=== PATIENT | female | born 1960 | race Caucasian/White ===

== ENCOUNTER → 2025-02-18 13:13 | Outpatient (BNVA) | payer OTHER, SELFPAY | PROVIDERS: Family Provider Nurse Practitioner Family; Visit Provider Internal Medicine | DX: I11.0 Hypertensive heart disease with heart failure (principal); I50.9 Heart failure, unspecified; I42.9 Cardiomyopathy, unspecified; E78.5 Hyperlipidemia, unspecified; Z95.810 Presence of automatic (implantable) cardiac defibrillator; Z87.891 Personal history of nicotine dependence; R07.9 Chest pain, unspecified; R06.02 Shortness of breath | CPT/HCPCS: 93005; 99204 ==

== ENCOUNTER 2025-03-25 11:06 | Outpatient (CLI) | payer OTHER, SELFPAY ==
--- NOTE | 2025-03-25 11:15 | USCV_ITS ---
Triplett Layla Age: 64 Gender: F : 1960 Exam Date: 03/25/2025 11:59 Ordering Phys: Bi Ramesh M.D ([email or web address]) Technologist: Exam Location: [facility] [place] Indication: cp sob hx of cva BP: 139 / 74 HR: 53 Rhythm: Sinus Technical Quality: Adequate MEASUREMENTS (Male / Female) Normal Values 2D ECHO LV Diastolic Diameter PLAX 4.2 cm 4.2 - 5.9 / 3.9 - 5.3 cm IVS Diastolic Thickness 1.3 cm 0.6 - 1.0 / 0.6 - 0.9 cm IVS Systolic Thickness 1.8 cm LVPW Diastolic Thickness 1.3 cm 0.6 - 1.0 / 0.6 - 0.9 cm LVPW Systolic Thickness 1.8 cm LVOT Diameter 2.0 cm LV Ejection Fraction 2D Teich 34.3 % LV Ejection Fraction MOD 4C 58.4 % LV Ejection Fraction MOD 2C 51.5 % LV Ejection Fraction 2C AL 53.5 % LA Diameter 3.2 cm RA Systolic Volume 4C AL 32.1 ml RA Systolic Volume 4C MOD 30.2 ml LA Sys Volume AL 32.9 cm cubed LA Sys Volume Index AL 18.4 cm cubed/m squared Aorta at Sinotubular Diameter 2.4 cm IVC Diameter 1.4 cm M-MODE LA Ao Ratio MM 1.0 AV Cusp Separation MM 1.9 cm DOPPLER AV Peak Velocity 159.0 cm/s LVOT Peak Velocity 63.0 cm/s AV Area Cont Eq vti 1.4 cm squared AV Area Cont Eq pk 1.3 cm squared MV Peak Velocity 83.0 cm/s MV Area PHT 3.2 cm squared Mitral E to A Ratio 0.9 TV Peak Velocity 235.0 cm/s TR Peak Velocity 239.0 cm/s TR Peak Gradient 22.8 mmHg TV Peak E Velocity 65.0 cm/s PV Peak Velocity 95.0 cm/s FINDINGS Left Ventricle Normal left ventricular size, systolic function and wall thickness, with no regional wall motion abnormalities. Left ventricular ejection fraction is estimated at 55 %. Grade II/IV diastolic dysfunction, moderately elevated filling pressures. Right Ventricle Catheter/pacemaker wire visualized in the right ventricle. Right Atrium Catheter/pacemaker wire in the right atrial cavity. Left Atrium The left atrium is normal in size. Mitral Valve Mild mitral valve regurgitation. Aortic Valve Mild aortic valve calcification. No aortic valve stenosis. Trace aortic valve regurgitation. Tricuspid Valve Structurally normal tricuspid valve without significant stenosis or regurgitation. Pulmonary artery systolic pressure is normal. Pulmonic Valve Mild pulmonary valve regurgitation. Pericardium Normal pericardium without effusion. Aorta Normal ascending aorta dimension. IVC The inferior vena cava appears normal. CONCLUSIONS Normal left ventricular size, systolic function and wall thickness, with no regional wall motion abnormalities. Left ventricular ejection fraction is estimated at 55 %. Grade II/IV diastolic dysfunction, moderately elevated filling pressures. Mild mitral valve regurgitation. There is no pericardial effusion. Right atrial pressure is around 5 mm of mercury. Antony Casas MD (Electronically Signed) Final Date: 31 March 2025 21:30 S
== END 2025-03-25 11:07 | disposition home or self-care (01) ==
LOC: RAD 11:08
PROVIDERS: PCP Nurse Practitioner Family; Visit Provider Internal Medicine
DX: R06.02 Shortness of breath (principal); R93.1 Abnormal findings on diagnostic imaging of heart and coronary circulation; Z96.89 Presence of other specified functional implants; I34.0 Nonrheumatic mitral (valve) insufficiency; I35.8 Other nonrheumatic aortic valve disorders; I37.1 Nonrheumatic pulmonary valve insufficiency
CPT/HCPCS: 93306

== ENCOUNTER 2025-06-21 13:23 | Outpatient (CLI) | payer OTHER, SELFPAY ==
--- NOTE | 2025-06-21 13:30 | USCV_ITS ---
Layla Triplett Age: 64 Gender: F : 1960 Exam Date: 06/21/2025 14:18 Ordering Phys: Chiqui Tam WATER LEAK REPAIRER WATER LEAK REPAIRER Technologist: JORJE [place] [facility] [place]: NSTEMI, CHF BP: 120 / 60 HR: 76 Rhythm: Sinus Technical Quality: Adequate MEASUREMENTS (Male / Female) Normal Values 2D ECHO LV Diastolic Diameter PLAX 4.4 cm 4.2 - 5.9 / 3.9 - 5.3 cm IVS Diastolic Thickness 0.9 cm 0.6 - 1.0 / 0.6 - 0.9 cm IVS Systolic Thickness 1.0 cm LVPW Diastolic Thickness 0.8 cm 0.6 - 1.0 / 0.6 - 0.9 cm LVPW Systolic Thickness 1.1 cm LVOT Diameter 2.0 cm LV Ejection Fraction 2D Teich 10.7 % LV Ejection Fraction MOD 4C 46.1 % LV Ejection Fraction MOD 2C 44.8 % LV Ejection Fraction 2C AL 51.8 % LA Diameter 2.9 cm RA Systolic Volume 4C AL 22.0 ml RA Systolic Volume 4C MOD 21.7 ml LA Sys Volume AL 27.4 cm cubed LA Sys Volume Index AL 14.9 cm cubed/m squared Aorta at Sinotubular Diameter 2.3 cm IVC Diameter 1.1 cm M-MODE LA Ao Ratio MM 1.2 AV Cusp Separation MM 1.2 cm DOPPLER AV Peak Velocity 122.0 cm/s LVOT Peak Velocity 80.0 cm/s AV Area Cont Eq vti 1.8 cm squared AV Area Cont Eq pk 2.0 cm squared MV Peak Velocity 69.0 cm/s MV Area PHT 4.2 cm squared Mitral E to A Ratio 0.9 TV Peak Velocity 176.5 cm/s TR Peak Velocity 211.0 cm/s TR Peak Gradient 17.8 mmHg TV Peak E Velocity 73.0 cm/s PV Peak Velocity 95.0 cm/s FINDINGS Left Ventricle Normal LV size with a slightly diminished ejection fraction of around 45 to 50%.abnormal septal motion consistent with conduction abnormality. Mild diffuse hypokinesia of the inferior wall segment Right Ventricle Normal right ventricular size and systolic function. Right Atrium Pacemaker/defibrillator wire on the right atrium pacemaker/defibrillator wire in the right ventricle Left Atrium Mildly increased left atrial size. IA Septum The interatrial septum appears to be intact Mitral Valve No gross abnormalities noted Aortic Valve Thickened aortic valve. Tricuspid Valve No gross abnormalities noted Pulmonic Valve Pulmonic valve not well visualized. Pericardium No pericardial effusion. Aorta Normal aortic annulus size. IVC Normal inferior vena cava. CONCLUSIONS Normal LV size with a slightly diminished ejection fraction of around 45 to 50%.abnormal septal motion consistent with conduction abnormality. Mild diffuse hypokinesia of the inferior wall segment. Pacemaker/defibrillator wire on the right atrium pacemaker/defibrillator wire in the right ventricle. Mildly increased left atrial size. Thickened aortic valve. There is no pericardial effusion. There are no intracardiac masses. Compared to the study from 03/25/2025, there is a slight drop in the LV ejection fraction Dr Shyann Villavicencio MD FAC (Electronically Signed) Final Date: 21 June 2025 22:18 S
== END 2025-06-21 13:24 | disposition home or self-care (01) ==
LOC: RAD 13:23
PROVIDERS: PCP Nurse Practitioner Family; Visit Provider Nurse Practitioner Family
DX: R07.9 Chest pain, unspecified (principal); R06.02 Shortness of breath; I45.89 Other specified conduction disorders; I51.89 Other ill-defined heart diseases; Z95.810 Presence of automatic (implantable) cardiac defibrillator; I35.8 Other nonrheumatic aortic valve disorders
CPT/HCPCS: 93306

== ENCOUNTER 2025-07-23 10:13 | Observation (INO) | payer OTHER, SELFPAY ==
[2025-07-23] VITALS (105 sets, daily range): BP systolic 75–115; BP diastolic 47–80; PULSE 84–121; RESP 15–38; TEMP 36.5; O2SAT 91–100
--- OUTSIDE RECORDS SUMMARY | 2025-07-23 10:29 | XMS_ITS | Clinical Summary ---
Author Organization [facility] iew Address [address] [place] [address] Phone Care Team Providers Care Orthotic Assistant Name Role Phone Unavailable Primary Care Provider Unavailabl e Encounters Date Type Department Care Team Description 06/22/2025 External Device Data [facility] ABSTRACTION Provider, Abstract 06/02/2025 External Device Data [facility]STRACTION Provider, Abstract 05/26/2025 External Device Data [facility]STRACTION Provider, Abstract 05/25/2025 External Device Data [facility] ABSTRACTION Provider, Abstract 04/24/2025 12:05 AM CDT - 04/24/2025 11:59 PM CDT Hospital Encounter [facility] [address] [place] [address] [facility] Discharge Disposition: [facility] hospital for [facility] complex [facility] hospital from Last 3 Months Social History Tobacco Use Types Packs/Day Years Used Date Smoking Tobacco: Never Assessed Comments Unknown Sex and Gender Information Value Date Recorded Sex Assigned at Not on file Legal Sex Female 3:46 PM CDT Gender Identity Not on file Sexual Orientation Not on file Plan of Treatment Health Maintenance Due Date Last Done Comments BREAST CANCER SCREENING 1999 COLORECTAL SCREENING 2004 Colorectal Cancer Screening 2004 FIT-DNA Q 3 years 2004 FIT/FOBT Q 1 year 2004 Flex Sig/CT Colonography Q 5 years 2004 RSV VACCINE (60+ or ) (1 - Risk 50-74 years 1-dose series) 2009 ZOSTER VACCINE (1 of 2) 2009 PNEUMOCOCCAL VACCINE 50+ YEA RS (2 of 2 - PCV) 04/14/2017 04/14/2016, 08/22/2010 OSTEOPOROSIS SCREENING 2024 INFLUENZA VACCINE (#1) 2025 9, 05/11/2016, 09/07/2015 DTAP/TDAP/TD VACCINES (3 - T d or Tdap) 01/26/2026 01/27/2016, 08/05/2011 Insurance MEDICARE PART A AND B [facility]
--- NOTE | 2025-07-23 10:36 | XR_ITS ---
WS: [id number] Portable AP upright chest, 07/23/2025 Clinical Data: AMS Comparison: Portable chest, 11/05/2014 Findings: No nodules, masses or effusions are seen. The heart is normal. The pulmonary vascularity is not increased. No pneumonia or pneumothorax is seen. The aortic arch and descending thoracic aorta are minimally tortuous. There is a 2-lead cardiac pacemaker with the generator overlying the right chest unchanged. There are surgical clips in the left axilla. 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 There is a levoscoliosis of the lumbar spine. XR/XR chest 1V portable [id number] Impression: Cardiac pacemaker and atherosclerosis.
--- NOTE | 2025-07-23 10:36 | CT_ITS ---
WS: [id number] CT scan of the head, 07/23/2025 Clinical Data: AMS Comparison: CT head 06/09/2014 DLP: 1897.[address] scans at [facility] use at least one of these dose optimization techniques: automated exposure control; mA and/or kV adjustment per patient size (includes targeted exams where dose is matched to clinical indication); or iterative reconstruction. Findings: The ventricular system is enlarged without shift. There is encephalomalacia of the left frontal parietal lobe with compensatory dilatation of the left lateral ventricle. No recent infarct or hemorrhage is seen. There are no abnormal intracerebral masses. The cerebellum and brainstem are not remarkable. Bony windows of the skull and skull base show no fractures or erosions. The mastoid air cells, internal auditory canals, sella turcica and intraorbital contents are unremarkable. There is a small lateral polyp or cyst in the right maxillary sinus. CT/CT head wo con* [id number] Impression: 1. Encephalomalacia of the left frontal parietal lobe with compensatory dilatat ion of the left lateral ventricle probably secondary to an old infarct. 2. Moderate cerebral atrophy.
--- NOTE | 2025-07-23 10:44 | W.ED.AMS ---
Documented by User: FREDERICK Mckee 07/23/25 17:41 HPI - Altered Mental Status General: Chief Complaint: Altered Mental Status Stated Complaint: AMS Time Seen by Provider: 07/23/25 10:24 Source: patient Mode of arrival: EMS Limitations: other (chronic aphasia from previous CVA) History of Present Illness: Patient is a 65-year-old female with history of cardiomyopathy, CVA with significant residual deficits including severe aphasia, hyperlipidemia, hypertension here via EMS for an episode of AMS. No history can be obtained from the patient as she is essentially nonverbal at baseline from her previous CVA. She seems to understand questioning and can sometimes mumble a yes/no . We were able to contact the daughter who is currently and route to the hospital who states this morning the patient had a episode where her eyes rolled back and she had kind of like foam coming from the side of her mouth and she seemed out of it . No seizure-like movements. Daughter states she seemed slow to come around but did return to baseline. Daughter states 2 days ago she had a procedure performed at [facility] where they removed old ureter stents and replaced them with new ones She states patient has not been running fevers. She has not seemed to have any shortness of breath. Blood pressure is soft upon arrival but daughter states this is normal for her. MD complaint: decreased responsiveness (short episode) Onset (ago): hour(s) Timing confirmed by: family member Severity: mild Context: other (pt does use marijuana and pain meds since her surgery) Associated symptoms: Reports no associated symptoms Related Data Home Medications ?Medication ?Instructions ?Recorded ?Confirmed albuterol sulfate 90 mcg/actuation 2 puff inhalation Q6H PRN 02/18/25 07/23/25 aerosol inhaler (Ventolin HFA) Shortness Of Breath atorvastatin 80 mg tablet (Lipitor) 80 mg PO QPM 02/18/25 07/23/25 cyanocobalamin (vitamin B-12) 1,000 mcg PO DAILY 02/18/25 07/23/25 1,000 mcg capsule spironolactone 25 mg tablet 25 mg PO DAILY 02/18/25 07/23/25 Held on 07/24/25. Instructions: Resume on 07/28/25. Keep blood pressure log resume if blood pressures normal, reviewed with primary care provider acetaminophen 500 mg tablet 1,000 mg PO QID PRN Pain 07/23/25 07/23/25 aspirin 81 mg tablet,delayed 81 mg PO DAILY 07/23/25 07/23/25 release bupropion HCl 150 mg 24 hr tablet, 150 mg PO QAM 07/23/25 07/23/25 extended release carvedilol 6.25 mg tablet 3.125 mg PO BID 07/23/25 07/23/25 Held on 07/24/25. Instructions: Resume on 07/28/25. Hold medication until reviewed with primary care provider, keep blood pressure logs, resume if blood pressure is greater than 110/60 cholecalciferol (vitamin D3) 50 50 mcg PO DAILY 07/23/25 07/23/25 mcg (2,000 unit) tablet (Vitamin D3) empagliflozin 25 mg tablet 12.5 mg PO DAILY 07/23/25 07/23/25 (Jardiance) furosemide 20 mg tablet (Lasix) 20 mg PO QAM PRN fluid retention 07/23/25 07/23/25 ibuprofen 600 mg tablet 600 mg PO QID PRN Pain 07/23/25 07/23/25 Held on 07/24/25. Instructions: Resume on 08/05/25. Reviewed with primary care provider before resuming ondansetron HCl 4 mg tablet 4 mg PO Q8H PRN Nausea 07/23/25 07/23/25 polyethylene glycol 3350 17 17 g PO DAILY PRN Constipation 07/23/25 07/23/25 gram/dose oral powder (Miralax) quetiapine 100 mg tablet (Seroquel) 50 mg PO BEDTIME 07/23/25 07/23/25 sacubitril 24 mg-valsartan 26 mg 1 tab PO BID 07/23/25 07/23/25 tablet Held on 07/24/25. Instructions: Resume on 07/28/25. Keep blood pressure log, resume if blood pressures are normal, reviewed with primary care provider sennosides 8.6 mg tablet (Senokot) 8.6 mg PO DAILY PRN Constipation 07/23/25 07/23/25 Previous Rx's ?Medication ?Instructions ?Recorded amoxicillin 875 mg-potassium 1 tab PO BID 10 days #20 tabs 07/24/25 clavulanate 125 mg tablet Allergies Allergy/AdvReac Type Severity Reaction Status Date / Time No Known Allergies Allergy Verified 02/18/25 13:28 Review of Systems Narrative: she does not seem to have any issues with receptive aphasia and seems to comprehend questions and can follow commands Const: Denies: fever(s) Eyes: Denies: change in vision Card: Denies: chest pain Resp: Denies: dyspnea GI: Denies: abdominal pain, vomiting or diarrhea Musc: Denies: neck pain, extremity pain, extremity swelling or joint pain Skin/Breast: Denies: rash Neuro: Denies: headache(s) PFSH ED PFSH: Medical History COPD (chronic obstructive pulmonary disease) CHF (congestive heart failure) Hyperlipemia Hypertension Social History Smoking and tobacco/nicotine status: former use of tobacco/nicotine Physical Exam Const: COMMON NORMALS: no acute distress, average body habitus, healthy appearing, alert and well nourished EXAM LIMITATIONS: other limitations (severe expressive aphasia) GENERAL APPEARANCE: cooperative OTHER: at mental baseline per daughter; significant aphasia and weakness chronic from previous stroke HENMT: COMMON NORMALS: normocephalic and atraumatic HEAD & SCALP: normal to inspection, normocephalic and atraumatic FACE & SINUS: normal facial exam and face symmetric Eye: COMMON NORMALS: Equal, round and reactive pupils present and EOMs intact bilaterally GENERAL EYE: appearance normal, both eyes and all related structures and normal light reflex PUPIL: Yes Equal, round and reactive pupils present DIRECT OPHTHALMOSCOPY: Yes normal light reflex Neck/C-Spine: COMMON NORMALS: full ROM, no lymphadenopathy and no meningeal signs Chest: COMMONS NORMALS: normal inspection of the chest and normal palpation of entire chest wall Resp: COMMON NORMALS: normal respiratory effort and clear to auscultation bilaterally AUSCULTATION: clear to auscultation bilaterally Cardio: COMMON NORMALS: regular rate and regular rhythm RATE: regular rate RHYTHM: regular rhythm GI: COMMON NORMALS: Normal to inspection, nondistended, normoactive bowel sounds present, Soft to palpation and non-tender PALPATION: Yes Soft to palpation : COMMON NORMALS: Yes no CVA tenderness BLADDER/KIDNEY EXAM: Yes no CVA tenderness Back/Pelvis: COMMON NORMALS: no CVA tenderness, thoracic and lumbar spine normal to inspection and no thoracic nor lumbar tenderness Extremity: COMMON NORMALS: capillary refill normal, no clubbing, cyanosis or edema, no calf tenderness and no pedal edema GENERAL: Yes normal exam except as noted Neuro: SENSORIUM/ORIENTATION: Yes alert MENINGEAL SIGNS: Yes no meningeal signs Skin: COMMON NORMALS: no rashes or lesions noted GENERAL SKIN EXAM: no rashes or lesions noted Course Consultations: Consultation #1: Dr. Boggs-accepts as observation Consultation #2: Dr. Ulloa-Shira urology-stated he would recommend fluids/IV abx/possible admission but there's nothing from a urology standpoint to be done and she would not need transferred Vital Signs: Vital signs: Vital Signs Temperature 98.1 F 07/24/25 14: Pulse Rate 91 07/24/25 14:25 Respiratory Rate 16 07/24/25 14:25 Blood Pressure 104/67 07/24/25 14:25 Pulse Oximetry 95 07/24/25 14:25 Oxygen Delivery Me thod Room Air 07/24/25 11:38 MDM - Altered Mental Status Medical Decision Making Patient is a 65-year-old female here with her daughter who is the primary historian here for an episode of decreased responsiveness this morning. She has since been back at her baseline. Vital signs have been stable during her stay. Blood pressures are soft but daughter states this is chronic for her. Blood work here revealing several derangements all without previous comparisons. She does have a white count of 16,000. Hemoglobin is at 9. Chemistry showing an elevation to her creatinine at 2.3. UA with 3+ blood, 2+ leukocyte esterase, greater than 100 WBCs question whether this is due to acute infection versus normal findings with ureter stents. Patient did have a significant delay in her care as we were trying to obtain records from [facility] for baseline lab comparisons. These eventually were faxed over. She did have a UA through [facility] they looked almost identical to today's-this urine eventually grew karla glabrata and normal genitourinary reinaldo. She had a normal white count at time of discharge few days ago. Her creatinine at time of discharge was 1.45. We had obtained a CT scan here and findings are overall unremarkable-no concerns regarding her stents. CT head obtained due to AMS-this showing significant encephalomalacia consistent with her old known CVA. I did reach out to her urology team through [facility] and spoke to Dr. Bey. He stated there was nothing from a urology standpoint that needed to be done as she recently had new stents placed. He did possibly recommend IV admission for fluids and antibiotics until urine culture returns-other option is she could be discharged with oral antibiotics. Shared decision making discussed along with the daughter. Patient has now became tachycardic so I think it is reasonable with concern for infection, leukocytosis, tachycardia that we hospitalize her. Her lactate was normal. Daughter in agreement. Discussed possibility of seizure-she is taking Cipro following her surgery and this can potentially cause seizures. She was given fluids and IV antibiotics here. Will obtain blood/urine cultures. I spoke to Dr. Boggs who is agreeable to obs admission. Dr. Shaw aware of patient and will place admit orders. Medical Records I reviewed the patient's medical records. Lab Data I reviewed the patient's lab results. 07/24/25 05:11 07/24/25 05:11 Radiology Impressions Chest X-Ray 07/23/25 10:36 Impression: Cardiac pacemaker and atherosclerosis. Head CT 07/23/25 10:36 Impression: 1. Encephalomalacia of the left frontal parietal lobe with compensatory dilatation of the left lateral ventricle probably secondary to an old infarct. 2. Moderate cerebral atrophy. Abdomen/Pelvis CT 07/23/25 11:20 Impression: 1. Bilateral renal calculi with bilateral renal stents extending from the kidneys into the bladder. 2. Ventral hernia at the level of the bladder. Laboratory Results WBC 16.01 10^3/uL (3.29-11.43) H 07/23/25 11:07 RBC 3.14 10^6/uL (3.85-5.65) L 07/23/25 11:07 Hgb 9.00 g/dL (11.27-16.99) L 07/23/25 11:07 Hct 29.1 % (36-47) L 07/23/25 11:07 MCV 92.7 fl (85-98) 07/23/25 11:07 MCH 28.7 pg (27-33) 07/23/25 11:07 MCHC 30.9 g/dL (30-55) 07/23/25 11:07 RDW 15.3 % (12.1-15.1) H 07/23/25 11:07 Plt Count 144 10^3/cmm (157-399) L 07/23/25 11:07 MPV 10.0 fL (7.4-10.4) 07/23/25 11:07 Neut % (Auto) 86.3 % 07/23/25 11:07 Lymph % (Auto) 5.7 % 07/23/25 11:07 [place] % (Auto) 7.1 % 07/23/25 11:07 Eos % (Auto) 0.0 % 07/23/25 11:07 Baso % (Auto) 0.2 % 07/23/25 11:07 Neut # (Auto) 13.81 10^3/uL (1.8-7.7) H 07/23/25 11:07 Lymph # (Auto) 0.9 10^3/uL (0.8-4.8) 07/23/25 11:07 [place] # (Auto) 1.1 10^3/uL (0.2-0.9) H 07/23/25 11:07 Eos # (Auto) 0.0 10^3/uL (0.0-0.8) 07/23/25 11:07 Baso # (Auto) 0.0 10^3/uL (0.0-0.1) 07/23/25 11:07 Nucleated RBC % (auto) 0 % 07/23/25 11:07 Nucleated RBCs # 0.0 /100WBC 07/23/25 11:07 Sodium 133 mmol/L (136-145) L 07/23/25 11:07 Potassium 3.8 mmol/L (3.5-5.1) 07/23/25 11:07 Chloride 101 mmol/L (98-107) 07/23/25 11:07 Carbon Dioxide 20 mmol/L (22-29) L 07/23/25 11:07 Anion Gap 15.8 (5-19) 07/23/25 11:07 BUN 21 mg/dL (8-23) 07/23/25 11:07 Creatinine 2.3 mg/dL (0.5-0.9) H 07/23/25 11:07 GFR Calculation 21.2 mL/min (90-130) L 07/23/25 11:07 Glucose 103 mg/dL (65-115) 07/23/25 11:07 Estimat Average Glucose 126 07/23/25 11:07 Hemoglobin A1c 6.0 % (4.0-6.0) 07/23/25 11:07 Calculated Osmolality 279 mOsm/kg (285-295) L 07/23/25 11:07 Lactic Acid 1.0 mmol/L (0.5-2.2) 07/23/25 11:07 Calcium 9.1 mg/dL (8.5-10.5) 07/23/25 11:07 Total Bilirubin 0.3 mg/dL (0.15-1.2) 07/23/25 11:07 AST 18 U/L (0-32) 07/23/25 11:07 ALT 20 U/L (0-33) 07/23/25 11:07 Alkaline Phosphatase 149 U/L (35-105) H 07/23/25 11:07 NT-Pro-B Natriuret Pep 881 pg/mL (0-125) H 07/23/25 11:07 Total Protein 5.9 g/dL (6.6-8.7) L 07/23/25 11:07 Albumin 2.8 g/dL (3.5-5.2) L 07/23/25 11:07 Globulin 3.1 g/dL (1.3-4.6) 07/23/25 11:07 Triglycerides 111 mg/dL (0-150) 07/23/25 11:07 Cholesterol 90 mg/dL (0-200) 07/23/25 11:07 LDL Cholesterol, Calc 32 mg/dL (50-129) L 07/23/25 11:07 HDL Cholesterol 36 mg/dL (60-100) L 07/23/25 11:07 LDL/HDL Ratio 0.89 RATIO (0.00-3.22) 07/23/25 11:07 Cholesterol/HDL Ratio 2.50 mg/dL (0.0-4.40) 07/23/25 11:07 Prolactin 15.02 ng/mL (4.8-23.3) 07/23/25 11:07 Urine Color Yellow (Yellow) 07/23/25 10:48 Urine Appearance Cloudy (CLEAR) A 07/23/25 10:48 Urine pH 5.5 (5-7) 07/23/25 10:48 Ur Specific [place] 1.014 (1.005-1.030) 07/23/25 10:48 Urine Protein 2+ (Negative) A 07/23/25 10:48 Urine Glucose (UA) 1+ (Normal) H 07/23/25 10:48 Urine Ketones Negative (Negative) 07/23/25 10:48 Urine Blood 3+ (Negative) A 07/23/25 10:48 Urine Nitrate Negative (Negative) 07/23/25 10:48 Urine Bilirubin Negative (Negative) 07/23/25 10:48 Urine Urobilinogen 0.2 mg/dL (Negative) 07/23/25 10:48 Ur Leukocyte Esterase 2+ (Negative) A 07/23/25 10:48 Urine RBC 21-50 /hpf (0-2) H 07/23/25 10:48 Urine WBC >100 /hpf (0-5) H 07/23/25 10:48 Ur Squamous Epith Cells 6-10 /hpf (0-5) 07/23/25 10:48 Amorphous Sediment Not Reportable 07/23/25 10:48 Urine Bacteria None seen /hpf (NONE) 07/23/25 10:48 Hyaline Casts 3.30 /lpf 07/23/25 10:48 Urine Yeast Trace /hpf 07/23/25 10:48 Urine Opiates Screen Positive ng/mL (Negative) H 07/23/25 10:48 Ur Barbiturates Screen Negative ng/mL (Negative) 07/23/25 10:48 Ur Phencyclidine Scrn Negative ng/mL (Negative) 07/23/25 10:48 Ur Amphetamines Screen Negative ng/mL (Negative) 07/23/25 10:48 U Benzodiazepines Scrn Negative ng/mL (Negative) 07/23/25 10:48 Urine Cocaine Screen Negative ng/mL (Negative) 07/23/25 10:48 U Marijuana (THC) Screen Positive ng/mL (Negative) H 07/23/25 10:48 All radiology interpretation(s) finalized by discharge Discharge Plan Discharge Patient Disposition: Placed in Observation Admit Provider: Yoshi Boggs Clinical Impression: UTI (urinary tract infection) with pyuria, Episode of altered consciousness Discharge Diet: Cardiac Discharge Activity: Resume usual activity Coding Level of Care Code ED Automatic Splicing Machine Operator for Chg Fwd Documented by User: James Shaw DO 07/25/25 06:06 HPI - Altered Mental Status General: Chief Complaint: Altered Mental Status Stated Complaint: AMS Time Seen by Provider: 07/23/25 10:24 Related Data Home Medications ?Medication ?Instructions ?Recorded ?Confirmed albuterol sulfate 90 mcg/actuation 2 puff inhalation Q6H PRN 02/18/25 07/23/25 aerosol inhaler (Ventolin HFA) Shortness Of Breath atorvastatin 80 mg tablet (Lipitor) 80 mg PO QPM 02/18/25 07/23/25 cyanocobalamin (vitamin B-12) 1,000 mcg PO DAILY 02/18/25 07/23/25 1,000 mcg capsule spironolactone 25 mg tablet 25 mg PO DAILY 02/18/25 07/23/25 Held on 07/24/25. Instructions: Resume on 07/28/25. Keep blood pressure log resume if blood pressures normal, reviewed with primary care provider acetaminophen 500 mg tablet 1,000 mg PO QID PRN Pain 07/23/25 07/23/25 aspirin 81 mg tablet,delayed 81 mg PO DAILY 07/23/25 07/23/25 release bupropion HCl 150 mg 24 hr tablet, 150 mg PO QAM 07/23/25 07/23/25 extended release carvedilol 6.25 mg tablet 3.125 mg PO BID 07/23/25 07/23/25 Held on 07/24/25. Instructions: Resume on 07/28/25. Hold medication until reviewed with primary care provider, keep blood pressure logs, resume if blood pressure is greater than 110/60 cholecalciferol (vitamin D3) 50 50 mcg PO DAILY 07/23/25 07/23/25 mcg (2,000 unit) tablet (Vitamin D3) empagliflozin 25 mg tablet 12.5 mg PO DAILY 07/23/25 07/23/25 (Jardiance) furosemide 20 mg tablet (Lasix) 20 mg PO QAM PRN fluid retention 07/23/25 07/23/25 ibuprofen 600 mg tablet 600 mg PO QID PRN Pain 07/23/25 07/23/25 Held on 07/24/25. Instructions: Resume on 08/05/25. Reviewed with primary care provider before resuming ondansetron HCl 4 mg tablet 4 mg PO Q8H PRN Nausea 07/23/25 07/23/25 polyethylene glycol 3350 17 17 g PO DAILY PRN Constipation 07/23/25 07/23/25 gram/dose oral powder (Miralax) quetiapine 100 mg tablet (Seroquel) 50 mg PO BEDTIME 07/23/25 07/23/25 sacubitril 24 mg-valsartan 26 mg 1 tab PO BID 07/23/25 07/23/25 tablet Held on 07/24/25. Instructions: Resume on 07/28/25. Keep blood pressure log, resume if blood pressures are normal, reviewed with primary care provider sennosides 8.6 mg tablet (Senokot) 8.6 mg PO DAILY PRN Constipation 07/23/25 07/23/25 Previous Rx's ?Medication ?Instructions ?Recorded amoxicillin 875 mg-potassium 1 tab PO BID 10 days #20 tabs 07/24/25 clavulanate 125 mg tablet Allergies Allergy/AdvReac Type Severity Reaction Status Date / Time No Known Allergies Allergy Verified 02/18/25 13:28 [facility] ED PFSH: Medical History COPD (chronic obstructive pulmonary disease) CHF (congestive heart failure) Hyperlipemia Hypertension Social History Smoking and tobacco/nicotine status: former use of tobacco/nicotine Course Vital Signs: Vital signs: Vital Signs Temperature 98.1 F 07/24/25 14:25 Pulse Rate 91 07/24/25 14:25 Respiratory Rate 16 07/24/25 14:25 Blood Pressure 104/67 07/24/25 14:25 Pulse Oximetry 95 07/24/25 14:25 Oxygen Delivery Me thod Room Air 07/24/25 11:38 MDM - Altered Mental Status Medical Decision Making Patient is a 65-year-old female here with her daughter who is the primary historian here for an episode of decreased responsiveness this morning. She has since been back at her baseline. Vital signs have been stable during her stay. Blood pressures are soft but daughter states this is chronic for her. Blood work here revealing several derangements all without previous comparisons. She does have a white count of 16,000. Hemoglobin is at 9. Chemistry showing an elevation to her creatinine at 2.3. UA with 3+ blood, 2+ leukocyte esterase, greater than 100 WBCs question whether this is due to acute infection versus normal findings with ureter stents. Patient did have a significant delay in her care as we were trying to obtain records from [facility] for baseline lab comparisons. These eventually were faxed over. She did have a UA through [facility] they looked almost identical to today's-this urine eventually grew karla glabrata and normal genitourinary reinaldo. She had a normal white count at time of discharge few days ago. Her creatinine at time of discharge was 1.45. We had obtained a CT scan here and findings are overall unremarkable-no concerns regarding her stents. CT head obtained due to AMS-this showing significant encephalomalacia consistent with her old known CVA. I did reach out to her urology team through [facility] and spoke to Dr. Bey. He stated there was nothing from a urology standpoint that needed to be done as she recently had new stents placed. He did possibly recommend IV admission for fluids and antibiotics until urine culture returns-other option is she could be discharged with oral antibiotics. Shared decision making discussed along with the daughter. Patient has now became tachycardic so I think it is reasonable with concern for infection, leukocytosis, tachycardia that we hospitalize her. Her lactate was normal. Daughter in agreement. Discussed possibility of seizure-she is taking Cipro following her surgery and this can potentially cause seizures. She was given fluids and IV antibiotics here. Will obtain blood/urine cultures. I spoke to Dr. Boggs who is agreeable to obs admission. Dr. Shaw aware of patient and will place admit orders. Chart reviewed and patient discussed with midlevel. Agree with assessment and plan. Lab Data 07/24/25 05:11 07/24/25 05:11 Radiology Impressions Chest X-Ray 07/23/25 10:36 Impression: Cardiac pacemaker and atherosclerosis. Head CT 07/23/25 10:36 Impression: 1. Encephalomalacia of the left frontal parietal lobe with compensatory dilatation of the left lateral ventricle probably secondary to an old infarct. 2. Moderate cerebral atrophy. Abdomen/Pelvis CT 07/23/25 11:20 Impression: 1. Bilateral renal calculi with bilateral renal stents extending from the kidneys into the bladder. 2. Ventral hernia at the level of the bladder. Laboratory Results WBC 16.01 10^3/uL (3.29-11.43) H 07/23/25 11:07 RBC 3.14 10^6/uL (3.85-5.65) L 07/23/25 11:07 Hgb 9.00 g/dL (11.27-16.99) L 07/23/25 11:07 Hct 29.1 % (36-47) L 07/23/25 11:07 MCV 92.7 fl (85-98) 07/23/25 11:07 MCH 28.7 pg (27-33) 07/23/25 11:07 MCHC 30.9 g/dL (30-55) 07/23/25 11:07 RDW 15.3 % (12.1-15.1) H 07/23/25 11:07 Plt Count 144 10^3/cmm (157-399) L 07/23/25 11:07 MPV 10.0 fL (7.4-10.4) 07/23/25 11:07 Neut % (Auto) 86.3 % 07/23/25 11:07 Lymph % (Auto) 5.7 % 07/23/25 11:07 [place] % (Auto) 7.1 % 07/23/25 11:07 Eos % (Auto) 0.0 % 07/23/25 11:07 Baso % (Auto) 0.2 % 07/23/25 11:07 Neut # (Auto) 13.81 10^3/uL (1.8-7.7) H 07/23/25 11:07 Lymph # (Auto) 0.9 10^3/uL (0.8-4.8) 07/23/25 11:07 [place] # (Auto) 1.1 10^3/uL (0.2-0.9) H 07/23/25 11:07 Eos # (Auto) 0.0 10^3/uL (0.0-0.8) 07/23/25 11:07 Baso # (Auto) 0.0 10^3/uL (0.0-0.1) 07/23/25 11:07 Nucleated RBC % (auto) 0 % 07/23/25 11:07 Nucleated RBCs # 0.0 /100WBC 07/23/25 11:07 Sodium 133 mmol/L (136-145) L 07/23/25 11:07 Potassium 3.8 mmol/L (3.5-5.1) 07/23/25 11:07 Chloride 101 mmol/L (98-107) 07/23/25 11:07 Carbon Dioxide 20 mmol/L (22-29) L 07/23/25 11:07 Anion Gap 15.8 (5-19) 07/23/25 11:07 BUN 21 mg/dL (8-23) 07/23/25 11:07 Creatinine 2.3 mg/dL (0.5-0.9) H 07/23/25 11:07 GFR Calculation 21.2 mL/min (90-130) L 07/23/25 11:07 Glucose 103 mg/dL (65-115) 07/23/25 11:07 Estimat Average Glucose 126 07/23/25 11:07 Hemoglobin A1c 6.0 % (4.0-6.0) 07/23/25 11:07 Calculated Osmolality 279 mOsm/kg (285-295) L 07/23/25 11:07 Lactic Acid 1.0 mmol/L (0.5-2.2) 07/23/25 11:07 Calcium 9.1 mg/dL (8.5-10.5) 07/23/25 11:07 Total Bilirubin 0.3 mg/dL (0.15-1.2) 07/23/25 11:07 AST 18 U/L (0-32) 07/23/25 11:07 ALT 20 U/L (0-33) 07/23/25 11:07 Alkaline Phosphatase 149 U/L (35-105) H 07/23/25 11:07 NT-Pro-B Natriuret Pep 881 pg/mL (0-125) H 07/23/25 11:07 Total Protein 5.9 g/dL (6.6-8.7) L 07/23/25 11:07 Albumin 2.8 g/dL (3.5-5.2) L 07/23/25 11:07 Globulin 3.1 g/dL (1.3-4.6) 07/23/25 11:07 Triglycerides 111 mg/dL (0-150) 07/23/25 11:07 Cholesterol 90 mg/dL (0-200) 07/23/25 11:07 LDL Cholesterol, Calc 32 mg/dL (50-129) L 07/23/25 11:07 HDL Cholesterol 36 mg/dL (60-100) L 07/23/25 11:07 LDL/HDL Ratio 0.89 RATIO (0.00-3.22) 07/23/25 11:07 Cholesterol/HDL Ratio 2.50 mg/dL (0.0-4.40) 07/23/25 11:07 Prolactin 15.02 ng/mL (4.8-23.3) 07/23/25 11:07 Urine Color Yellow (Yellow) 07/23/25 10:48 Urine Appearance Cloudy (CLEAR) A 07/23/25 10:48 Urine pH 5.5 (5-7) 07/23/25 10:48 Ur Specific [place] 1.014 (1.005-1.030) 07/23/25 10:48 Urine Protein 2+ (Negative) A 07/23/25 10:48 Urine Glucose (UA) 1+ (Normal) H 07/23/25 10:48 Urine Ketones Negative (Negative) 07/23/25 10:48 Urine Blood 3+ (Negative) A 07/23/25 10:48 Urine Nitrate Negative (Negative) 07/23/25 10:48 Urine Bilirubin Negative (Negative) 07/23/25 10:48 Urine Urobilinogen 0.2 mg/dL (Negative) 07/23/25 10:48 Ur Leukocyte Esterase 2+ (Negative) A 07/23/25 10:48 Urine RBC 21-50 /hpf (0-2) H 07/23/25 10:48 Urine WBC >100 /hpf (0-5) H 07/23/25 10:48 Ur Squamous Epith Cells 6-10 /hpf (0-5) 07/23/25 10:48 Amorphous Sediment Not Reportable 07/23/25 10:48 Urine Bacteria None seen /hpf (NONE) 07/23/25 10:48 Hyaline Casts 3.30 /lpf 07/23/25 10:48 Urine Yeast Trace /hpf 07/23/25 10:48 Urine Opiates Screen Positive ng/mL (Negative) H 07/23/25 10:48 Ur Barbiturates Screen Negative ng/mL (Negative) 07/23/25 10:48 Ur Phencyclidine Scrn Negative ng/mL (Negative) 07/23/25 10:48 Ur Amphetamines Screen Negative ng/mL (Negative) 07/23/25 10:48 U Benzodiazepines Scrn Negative ng/mL (Negative) 07/23/25 10:48 Urine Cocaine Screen Negative ng/mL (Negative) 07/23/25 10:48 U Marijuana (THC) Screen Positive ng/mL (Negative) H 07/23/25 10:48 Discharge Plan Discharge Patient Disposition: Placed in Observation Admit Provider: Yoshi Boggs Clinical Impression: UTI (urinary tract infection) with pyuria, Episode of altered consciousness Discharge Diet: Cardiac Discharge Activity: Resume usual activity Coding Level of Care Code ED Automatic Splicing Machine Operator for Lee Elizalde
[2025-07-23 10:57] LABS: Glucose Urine UA 1+ (Normal); Nitrate Urine Negative (Negative); Specific Gravity, Urine 1.014 (1.005-1.030)
[2025-07-23 11:02] LABS: Add Urine Microscopic? YES
[2025-07-23 11:07] LABS: PCP Screen Urine Negative (Negative)
[2025-07-23 11:11] LABS: UA Slide Review UA Slide Review Perf
[2025-07-23 11:18] LABS: Hematocrit 29.1 % (36-47); Hemoglobin 9.00 g/dL (11.27-16.99); Mean Corpuscular HGB Conc 30.9 g/dL (30-55); Mean Corpuscular Hemoglobin 28.7 pg (27-33); Mean Corpuscular Volume 92.7 fl (85-98); Nucleated Red Blood Cells % 0 %; Platelet Count 144 10^3/cmm (157-399); Red Blood Count 3.14 10^6/uL (3.85-5.65); White Blood Count 16.01 10^3/uL (3.29-11.43)
--- NOTE | 2025-07-23 11:20 | CT_ITS ---
WS: [id number] CT scan of the abdomen and pelvis without Oral and IV contrast. Additional two- dimensional coronal and sagittal reconstruction was performed. 07/23/2025 Clinical Data: recent kidney/ureter procedure; infected urine/white count Comparison: None. DLP: 536.[address] scans at [facility] use at least one of these dose optimization techniques: automated exposure control; mA and/or kV adjustment per patient size (includes targeted exams where dose is matched to clinical indication); or iterative reconstruction. Findings: The lower lungs show no nodules, masses or effusions. There are cardiac pacemaker wires in the heart. The liver, gallbladder, spleen, adrenal glands and pancreas are normal. The kidneys show bilateral renal calculi. There are bilateral renal stents. The right renal stent is curled in the right renal pelvis just outside the central portion of the kidney. The left renal stent is curled within the central renal pelvis. No renal masses are seen. The abdominal aorta is normal in size with calcification in the wall.. No appendicitis or diverticulitis is seen. The stomach, small bowel and colon are not remarkable. There is a ventral hernia at the level of the bladder which contains colon. No abscess, adenopathy, ascites, obstruction or mass is seen. The bladder is unremarkable. The bilateral pigtail renal catheters and in the bladder. No inguinal hernia is seen. The bones of the lower thorax, lumbar spine, pelvis, and hips show osteoarthritis and disc narrowing of the lumbar spine.. CT/CT kidney stone [id number] Impression: 1. Bilateral renal calculi with bilateral renal stents extending from the kidne ys into the bladder. 2. Ventral hernia at the level of the bladder.
[2025-07-23 11:36] LABS: Lactic Sepsis W/Reflex 1.0 mmol/L (0.5-2.2)
[2025-07-23 11:37] LABS: Alanine Aminotransferase 20 U/L (0-33); Albumin Level 2.8 g/dL (3.5-5.2); Alkaline Phosphatase 149 U/L (35-105); Anion Gap 15.8 (5-19); Aspartate Amino Transferase 18 U/L (0-32); Blood Urea Nitrogen 21 mg/dL (8-23); Calcium 9.1 mg/dL (8.5-10.5); Carbon Dioxide 20 mmol/L (22-29); Chloride 101 mmol/L (98-107); Globulin 3.1 g/dL (1.3-4.6); Glucose 103 mg/dL (65-115); Osmolality Calculated 279 mOsm/kg (285-295); Potassium 3.8 mmol/L (3.5-5.1); Sodium 133 mmol/L (136-145); Total Protein 5.9 g/dL (6.6-8.7)
--- NOTE | 2025-07-23 11:56 | PC.PHAR ---
[facility] 07/23/25 11:56am
[2025-07-23] MEDS: morphine 4 mg/mL SDV 1 mL IVP (16:16)
[2025-07-23] MEDS: piperacillin-tazobactam 3.375 GM in sodium chloride 0.9% (plus) 50 ML IV (16:59)
--- NOTE | 2025-07-23 18:08 | P.HP_ITS ---
<Statement entered by Yoshi Boggs MD - 07/23/25 21:13> Patient case discussed with ED provider and reviewed and discussed with ZENIA including E&M. Providers/Chief Complaint 2 Admitting Physician: Dr. Boggs Primary Care Provider: Chiqui Tam Chief Complaint: AMS History of Present Illness Layla Triplett is a 65 year old femalew/ pmhx of cardiomyopathy, CVA with significant residual deficits including severe aphasia, hyperlipidemia, COPD, hypertension presents today via EMS with c/o AMS. Patient has history of CVA with large stroke in November, with residual deficits, aphasia, normally only answers yes or no questions. Unable to complete ROS due to medical condition. History ureteral stents?was exchanged on Saturday. Patient was started on Cipro after stents were replaced urine with WBC and some RBC grew some Alina glabrata. Was brought in after episode of AMS, eyes rolled back, foaming at mouth, no convulsions, but residual confusion, now resolved. No known prior history of seizure. FREDERICK Mckee spoke with partner of urologist, recommends not changing stents or doing any thing else surgical now. Patient will be admitted with change of empiric antibiotics. If persistent AMS/UTI symptoms could consider possible antifungal. Patient to be admitted under observation status with hospitalist services for further medical management and care. While in ED a CBC, CMP, Lactic acid, UA, toxicology obtained, reviewed, and results as follows: WBC 16.01, Neut 13.81, Bee 1.1, RBC 3.14, Hgb 9.0, HCT 29.1, RDW 15.3, Plt 144. Na 133, K 3.8, Osmo 279, glucose 103. Roading Engineer 2.3, BUN 21, GFR 21.2, alk phos 149. Albumin 2.8, total protein 5.9. UA: Urine WBC > 100, urine RBC 21-50, urine ,glucose 1+ ,leukocyte esterase 2+ urine protein 2+. Toxicology positive for opioids and marijuana. While in ED the following medications were administered: 1.5 L NS bolus, morphine 4 mg IVP, Zosyn 3.375 g IV. Review of Systems 2 General: Reports: ROS unobtainable due to medical condition Medications/Allergies Home Medications ?Medication ?Instructions ?Recorded ?Confirmed ?Last Taken ?Type albuterol sulfate 90 mcg/actuation 2 puff inhalation Q 6H PRN 02/18/25 07/23/25 Unknown History aerosol inhaler (Ventolin HFA) Shortness Of Breath atorvastatin 80 mg tablet (Lipitor) 80 mg PO QPM 02/1807/23/25 07/22/25 History cyanocobalamin (vitamin B-12) 1,000 mcg PO DAILY 02/1807/23/25 07/22/25 History 1,000 mcg capsule spironolactone 25 mg tablet 25 mg PO DAILY 02/18/2507/22/25 History acetaminophen 500 mg tablet 1,000 mg PO QID PRN Pain 1 09/23/24 07/23/25 Unknown History aspirin 81 mg tablet,delayed 81 mg PO DAILY 07/23/25 1 09/23/24 07/22/25 History release bupropion HCl 150 mg 24 hr tablet, 150 mg PO QAM 07/2307/23/25 07/22/25 History extended release carvedilol 6.25 mg tablet 3.125 mg PO BID 07/23/2507/22/25 History cholecalciferol (vitamin D3) 50 50 mcg PO DAILY 07/23/25 07/22/25 History mcg (2,000 unit) tablet (Vitamin D3) empagliflozin 25 mg tablet 12.5 mg PO DAILY 07/23/25 1 09/23/24 07/22/25 History (Jardiance) furosemide 20 mg tablet (Lasix) 20 mg PO QAM PRN fluid retention 07/23/25 07/23/25 Unknown History ibuprofen 600 mg tablet 600 mg PO QID PRN Pain 07/2307/23/25 Unknown History ondansetron HCl 4 mg tablet 4 mg PO Q8H PRN Nausea 07/23/25 Unknown History polyethylene glycol 3350 17 17 g PO DAILY PRN Constipa tion 07/23/25 07/23/25 Unknown History gram/dose oral powder (Miralax) quetiapine 100 mg tablet (Seroquel) 50 mg PO BEDTIME 1 09/23/24 07/23/25 07/22/25 History sacubitril 24 mg-valsartan 26 mg 1 tab PO BID 07/23/25 07/23/25 07/22/25 History tablet sennosides 8.6 mg tablet (Senokot) 8.6 mg PO DAILY PRN Constipation 07/23/25 07/23/25 Unknown History Allergies Allergy/AdvReac Type Severity Reaction Status Date / Time No Known Allergies Allergy Verified 02/18/25 13:28 PFSH Acute 2 PFSH: Medical History (Updated 07/23/25 @ 20:54 by Karlene De La Torre NP) Chronic systolic heart failure COPD (chronic obstructive pulmonary disease) CHF (congestive heart failure) Hyperlipemia Hypertension Social History Smoking and tobacco/nicotine status: former use of tobacco/nicotine Vitals/I&O/Wt Last Vital Signs Temp 97.7 F 07/23/25 10:15 Pulse 102 H 07/23/25 17:20 Resp 20 H 07/23/25 17:20 BP 115/73 07/23/25 17:20 Pulse Ox 94 07/23/25 17:20 O2 Del Method Room Air 07/23/25 10:36 07/23/25 07/23/25 07/23/25 06:59 14:59 22:59 Intake Total 500 / 500 Balance 500 / 500 Weight last 48 hrs Weight 63.503 kg Physical Exam 2 Narrative: General: Answers yes/no patient-patient's baseline, patient appeared anxious. HEENT: Normo-cephalic, atraumatic, grossly unremarkable exam Cardio: ST, normal S1-S2 without any murmurs, rubs, or gallops and JVD normal Respiratory: Clear breathing to bilateral upper and lower lobes on auscultation GI: Abd soft, tenderness noted to lower ABD, non-distended, normo-active bowel sounds present Behavior: Appropriate and cooperative Extremities: Adequate palpable pulses. No clubbing, cyanosis or edema, Full ROM Data 07/23/25 11:07 07/23/25 11:07 Other Labs: 07/23: Abd/pelvis CT: Reviewed and results as follows: Bilateral renal calculi with bilateral renal stents extending from the kidneys into the bladder. Ventral hernia at the level of the bladder. 07/23: Head CT: Reviewed and results as follows: Encephalomalacia of the left frontal parietal lobe with compensatory dilatation of the left lateral ventricle probably secondary to an old infarct. Moderate cerebral atrophy 07/23: CXR: Reviewed and results as follows: Cardiac pacemaker and atherosclerosis. Micro: Microbiology 07/23/25 17:09 Blood Culture - Preliminary Blood SPECIMEN COLLECTED 07/23/25 17:08 Blood Culture - Preliminary Blood SPECIMEN COLLECTED A&P Assessment and plan 1. Seizure: - Likely due to recent prescription of ciprofloxacin as seizures can be an adverse effect - Episode of AMS, eyes rolled back, foaming at mouth, no convulsions, but residual confusion, now resolved. No known prior history of seizure. - History ureteral stents?was exchanged on Saturday. Patient was started on Cipro after stents were replaced urine with WBC and some RBC grew some Alina glabrata. - Seizure precautions - Aspiration precautions - Prolactin ordered 2. UTI (urinary tract infection) with pyuria: - 07/23:UA: Urine WBC > 100, urine RBC 21-50, urine ,glucose 1+ ,leukocyte esterase 2+ urine protein 2+ - 07/23: Abd/pelvis CT: Bilateral renal calculi with bilateral renal stents extending from the kidneys into the bladder. Ventral hernia at the level of the bladder. - History ureteral stents?was exchanged on Saturday. Patient was started on Cipro after stents were replaced urine with WBC and some RBC grew some Alina glabrata. - Tenderness to lower ABD, reports pain with urination. - Urine Cultures ordered, pending. - PO abx amoxicillin/clavulanate 875-125 mg twice daily - CBC, CMP, mag daily. 3. NIKHIL (acute kidney injury): - Roading Engineer 2.3, BUN 21, GFR 21.2, alk phos 149 - Keep MAP >65 - Monitor K and Phos - Strict I&O's - Avoid nephrotoxins - CMP daily 4. Hypertension: - Hold home medication carvedilol 3.125 mg p.o. twice daily-patient hypotensive in ED - Vital signs as per protocol 5. Hyperlipemia: - Lipid panel ordered, pending - Continue home medication atorvastatin 80 mg p.o. daily 6. Chronic systolic heart failure: - 06/21/25: Echo: Normal LV size with a slightly diminished ejection fraction of around 45 to 50%.abnormal septal motion consistent with conduction abnormality. Mild diffuse hypokinesia of the inferior wall segment. Pacemaker/defibrillator wire on the right atrium pacemaker/defibrillator wire in the right ventricle. Mildly increased left atrial size. Thickened aortic valve. There is no pericardial effusion. There are no intracardiac masses. Compared to the study from 03/25/2025, there is a slight drop in the LV ejection fraction. -BNP ordered, pending. - Strict I's and O's - Daily weights - Cardiac diet - Hold home diuretics due to NIKHIL, monitor. - Continue home medication aspirin 81 mg daily - Hold home medication Entresto due to NIKHIL 7. Depression: - Continue home medications Seroquel 50 mg p.o. dly - Continue home medication bupropion 150mg PO dly 8. DM2 (diabetes mellitus, type 2): - Hold home medication Jardiance 12.5 mg p.o. daily - A1c ordered, pending. - Blood glucose monitoring, ACHS - Low regimen sliding scale - Hypoglycemic protocol Plan: CODE STATUS: Full Code VTE prophylaxis: Heparin 5000u SC dly PDMP PDMP Reviewed: Not Reviewed Attestations 2 Medical Necessity Statement*: Admitted under observation status. Given complexity of patient's presentation, seizures, NIKHIL, co-morbid conditions, and required intensity of treatment, a hospitalization under two midnights is anticipated. and High Time for a total of 78 minutes, includes reviewing past or interval history, examining/interviewing patient, placing orders, counseling patient/family/other support, updating patient/family/other support, discussing plan of care with staff, communicating with other healthcare providers, documenting encounter and coordinating care Diagnoses Seizure R56.9 UTI (urinary tract infection) with pyuria N39.0 NIKHIL (acute kidney injury) N17.9 Hypertension I10 Hyperlipemia E78.5 Chronic systolic heart failure I50.22 Depression F32.A DM2 (diabetes mellitus, type 2) E11.9
[2025-07-23 20:26] LABS: Cholesterol 90 mg/dL (0-200); HDL Cholesterol 36 mg/dL (60-100); NT Pro B Type Natriuretic Pept 881 pg/mL (0-125); Triglycerides 111 mg/dL (0-150)
--- NOTE | 2025-07-23 20:50 | PC.NURSE ---
Pt IV dislodged during transfer to wheelchair before being wheeled to Med-surg. [facility] Jackie notified Med-surg staff upon arrival. Iv catheter inspected by this nurse and was intact after dislodge.
[2025-07-23 21:25] LABS: Estmated Average Glucose 126; Hemoglobin A1C 6.0 % (4.0-6.0)
[2025-07-23] MEDS: heparin 5,000 unit/mL INJ 1 mL 5000 UNIT SUBCUT (23:40)
--- NOTE | 2025-07-24 01:47 | PC.NURSE ---
2220 pt arrived from ER-- settle pt to her bed. no complaints- pt aphasic,no facial grimacing. able to answer to yes/no questions, able to understand but not able to vocally verbalized. rr 16, no apparent distress.
[2025-07-24 04:19] VITALS: BP 97/63; PULSE 88; TEMP 36.6; O2SAT 97
[2025-07-24 05:37] LABS: Hematocrit 28.9 % (36-47); Hemoglobin 8.90 g/dL (11.27-16.99); Mean Corpuscular HGB Conc 30.8 g/dL (30-55); Mean Corpuscular Hemoglobin 28.7 pg (27-33); Mean Corpuscular Volume 93.2 fl (85-98); Nucleated Red Blood Cells % 0 %; Platelet Count 158 10^3/cmm (157-399); Red Blood Count 3.10 10^6/uL (3.85-5.65); White Blood Count 11.12 10^3/uL (3.29-11.43)
[2025-07-24 05:45] LABS: Alanine Aminotransferase 16 U/L (0-33); Albumin Level 2.7 g/dL (3.5-5.2); Alkaline Phosphatase 160 U/L (35-105); Anion Gap 16.6 (5-19); Aspartate Amino Transferase 13 U/L (0-32); Blood Urea Nitrogen 22 mg/dL (8-23); Calcium 8.9 mg/dL (8.5-10.5); Carbon Dioxide 18 mmol/L (22-29); Chloride 106 mmol/L (98-107); Globulin 3.1 g/dL (1.3-4.6); Glucose 81 mg/dL (65-115); Magnesium 1.8 mg/dL (1.7-2.3); Osmolality Calculated 286 mOsm/kg (285-295); Potassium 3.6 mmol/L (3.5-5.1); Sodium 137 mmol/L (136-145); Total Protein 5.8 g/dL (6.6-8.7)
[2025-07-24 08:00] VITALS: BP 106/77; PULSE 94; RESP 17; TEMP 36.4; O2SAT 95
[2025-07-24] MEDS: heparin 5,000 unit/mL INJ 1 mL 5000 UNIT SUBCUT (08:05)
--- NOTE | 2025-07-24 09:57 | P.DS_ITS ---
Discharge Providers Date of Admission: 07/23/25 17:08 Date of Discharge: July 24, 2025 Attending Provider at Admission: Yoshi Boggs Attending Provider at Discharge: Janelle Monk NP Primary Care Provider: Chiqui Tam Diagnoses at Discharge Discharge Diagnosis 1. Seizure: 2. UTI (urinary tract infection) with pyuria: 3. NIKHIL (acute kidney injury): 4. Hypertension: 5. Hyperlipemia: 6. Chronic systolic heart failure: 7. Depression: 8. DM2 (diabetes mellitus, type 2): Reason for Visit Reason for Visit: AMS Brief History: Admission: Layla Triplett is a 65 year old femalew/ pmhx of cardiomyopathy, CVA with significant residual deficits including severe aphasia, hyperlipidemia, COPD, hypertension presents today via EMS with c/o AMS. Patient has history of CVA with large stroke in November, with residual deficits, aphasia, normally only answers yes or no questions. Unable to complete ROS due to medical condition. History ureteral stents?was exchanged on Saturday. Patient was started on Cipro after stents were replaced urine with WBC and some RBC grew some Alina glabrata. Was brought in after episode of AMS, eyes rolled back, foaming at mouth, no convulsions, but residual confusion, now resolved. No known prior history of seizure. FREDERICK Mckee spoke with partner of urologist, recommends not changing stents or doing any thing else surgical now. Patient will be admitted with change of empiric antibiotics. If persistent AMS/UTI symptoms could consider possible antifungal. Patient to be admitted under observation status with hospitalist services for further medical management and care. While in ED a CBC, CMP, Lactic acid, UA, toxicology obtained, reviewed, and results as follows: WBC 16.01, Neut 13.81, Andrew 1.1, RBC 3.14, Hgb 9.0, HCT 29.1, RDW 15.3, Plt 144. Na 133, K 3.8, Osmo 279, glucose 103. Title Lawyer 2.3, BUN 21, GFR 21.2, alk phos 149. Albumin 2.8, total protein 5.9. UA: Urine WBC > 100, urine RBC 21-50, urine ,glucose 1+ ,leukocyte esterase 2+ urine protein 2+. Toxicology positive for opioids and marijuana. While in ED the following medications were administered: 1.5 L NS bolus, morphine 4 mg IVP, Zosyn 3.375 g IV. Hospital Course Hospital Course 1. Seizure: - Likely due to recent prescription of ciprofloxacin as seizures can be an adverse effect - Episode of AMS, eyes rolled back, foaming at mouth, no convulsions, but residual confusion, now resolved. No known prior history of seizure. - History ureteral stents?was exchanged on Saturday. Patient was started on Cipro after stents were replaced urine with WBC and some RBC grew some Alina glabrata. - Seizure precautions - Aspiration precautions - Prolactin ordered - No seizure activity witnesses, will follow up outpatient with Neurology, established with [facility]. 2. UTI (urinary tract infection) with pyuria: - 07/23:UA: Urine WBC > 100, urine RBC 21-50, urine ,glucose 1+ ,leukocyte esterase 2+ urine protein 2+ - 07/23: Abd/pelvis CT: Bilateral renal calculi with bilateral renal stents extending from the kidneys into the bladder. Ventral hernia at the level of the bladder. - History ureteral stents?was exchanged on Saturday. Patient was started on Cipro after stents were replaced urine with WBC and some RBC grew some Alina glabrata. - Tenderness to lower ABD, reports pain with urination. - Urine Cultures ordered, pending. - PO abx amoxicillin/clavulanate 875-125 mg twice daily - discharges with 10 day prescription - Follow-up outpatient with urology at the next available appointment 3. NIKHIL (acute kidney injury): - Title Lawyer 2.3, BUN 21, GFR 21.2, alk phos 149, Improved Cr 2.1 - advised continued outpatient monitoring - Follow-up with PCP in 1-2 days, repeat labs 4. Hypertension: - Hold home medication carvedilol 3.125 mg p.o. twice daily- resume under care of PCP - Vital signs as per protocol 5. Hyperlipemia: - Continue home medication atorvastatin 80 mg p.o. daily 6. Chronic systolic heart failure: - 06/21/25: Echo: Normal LV size with a slightly diminished ejection fraction of around 45 to 50%.abnormal septal motion consistent with conduction abnormality. Mild diffuse hypokinesia of the inferior wall segment. Pacemaker/defibrillator wire on the right atrium pacemaker/defibrillator wire in the right ventricle. Mildly increased left atrial size. Thickened aortic valve. There is no pericardial effusion. There are no intracardiac masses. Compared to the study from 03/25/2025, there is a slight drop in the LV ejection fraction. -BNP ordered, pending. - Strict I's and O's - Daily weights - Cardiac diet - Hold home diuretics due to NIKHIL, monitor. - Continue home medication aspirin 81 mg daily - Hold home medication Entresto, resume under direction of PCP 7. Depression: - Continue home medications Seroquel 50 mg p.o. dly - Continue home medication bupropion 150mg PO dly 8. DM2 (diabetes mellitus, type 2): - Hold home medication Jardiance 12.5 mg p.o. daily - A1c ordered, pending. - Blood glucose monitoring, ACHS - Low regimen sliding scale - Hypoglycemic protocol Discharge: Patient discharge is a very stable condition and care of her daughter. Daughter states that this is her mother's baseline that she cares for at home in this condition and is very pleased with her progress. Patient is very well-hydrated at discharge. Patient will follow-up outpatient with her neurologist, previously scheduled appointment for next month. Patient also will follow-up outpatient with her urologist in the next week. Advised patient's da jair that patient will need to follow-up with primary care provider in 1 to 2 days. Prescription for continued oral antibiotic therapy sent to pharmacy, all questions and concerns been addressed with the patient's daughter at discharge. Physical Exam Narrative: General: Answers yes/no patient-patient's baseline, patient in no apparent distress. HEENT: Normo-cephalic, atraumatic, grossly unremarkable exam Cardio: ST, normal S1-S2 without any murmurs, rubs, or gallops and JVD normal Respiratory: Clear breathing to bilateral upper and lower lobes on auscultation GI: Abd soft, tenderness noted to lower ABD, non-distended, normo-active bowel sounds present Behavior: Appropriate and cooperative Extremities: Adequate palpable pulses. No clubbing, cyanosis or edema, Full ROM Discharge Data Studies Completed and Pending Completed Studies During Hospitalization Category Date Time Status CT abdomen renal stone [CT kidney stone 30083] Stat Cat Scan 07/23/25 11:[address] head wo con* [id number] Urgent Cat Scan 07/23/25 10:36 Completed XR chest 1V portable [id number] Urgent Exams 07/23/25 10:36 Completed Pending at discharge Category Date Time Status Blood Culture Stat Lab 07/23/25 17:09 Results Complete Blood Count w/Auto AM LABS Lab 07/25/25 04:00 Ordered Complete Blood Count w/Auto AM LABS Lab 07/26/25 04:00 Ordered Comprehensive Metabolic Panel AM LABS Lab 07/25/25 04:00 Ordered Comprehensive Metabolic Panel AM LABS Lab 07/26/25 04:00 Ordered Magnesium AM LABS Lab 07/25/25 04:00 Ordered Magnesium AM LABS Lab 07/26/25 04:00 Ordered Urine Culture Stat Lab 07/23/25 10:48 Received Radiology Impressions Chest X-Ray 07/23/25 10:36 Impression: Cardiac pacemaker and atherosclerosis. Head CT 07/23/25 10:36 Impression: 1. Encephalomalacia of the left frontal parietal lobe with compensatory dilatation of the left lateral ventricle probably secondary to an old infarct. 2. Moderate cerebral atrophy. Abdomen/Pelvis CT 07/23/25 11:20 Impression: 1. Bilateral renal calculi with bilateral renal stents extending from the kidneys into the bladder. 2. Ventral hernia at the level of the bladder. Laboratory Results WBC 11.12 10^3/uL (3.29-11.43) 07/24/25 05:11 RBC 3.10 10^6/uL (3.85-5.65) L 07/24/25 05:11 Hgb 8.90 g/dL (11.27-16.99) L 07/24/25 05:11 Hct 28.9 % (36-47) L 07/24/25 05:11 MCV 93.2 fl (85-98) 07/24/25 05:11 MCH 28.7 pg (27-33) 07/24/25 05:11 MCHC 30.8 g/dL (30-55) 07/24/25 05:11 RDW 15.4 % (12.1-15.1) H 07/24/25 05:11 Plt Count 158 10^3/cmm (157-399) 07/24/25 05:11 MPV 10.4 fL (7.4-10.4) 07/24/25 05:11 Neut % (Auto) 79.2 % 07/24/25 05:11 Lymph % (Auto) 11.1 % 07/24/25 05:11 Andrew % (Auto) 9.1 % 07/24/25 05:11 Eos % (Auto) 0.0 % 07/24/25 05:11 Baso % (Auto) 0.2 % 07/24/25 05:11 Neut # (Auto) 8.82 10^3/uL (1.8-7.7) H 07/24/25 05:11 Lymph # (Auto) 1.2 10^3/uL (0.8-4.8) 07/24/25 05:11 Andrew # (Auto) 1.0 10^3/uL (0.2-0.9) H 07/24/25 05:11 Eos # (Auto) 0.0 10^3/uL (0.0-0.8) 07/24/25 05:11 Baso # (Auto) 0.0 10^3/uL (0.0-0.1) 07/24/25 05:11 Nucleated RBC % (auto) 0 % 07/24/25 05:11 Nucleated RBCs # 0.0 /100WBC 07/24/25 05:11 Sodium 137 mmol/L (136-145) 07/24/25 05:11 Potassium 3.6 mmol/L (3.5-5.1) 07/24/25 05:11 Chloride 106 mmol/L (98-107) 07/24/25 05:11 Carbon Dioxide 18 mmol/L (22-29) L 07/24/25 05:11 Anion Gap 16.6 (5-19) 07/24/25 05:11 BUN 22 mg/dL (8-23) 07/24/25 05:11 Creatinine 2.1 mg/dL (0.5-0.9) H 07/24/25 05:11 GFR Calculation 23.6 mL/min (90-130) L 07/24/25 05:11 Glucose 81 mg/dL (65-115) 07/24/25 05:11 POC Glucose 84 mg/dL (70-110) 07/24/25 06:29 Estimat Average Glucose 126 07/23/25 11:07 Hemoglobin A1c 6.0 % (4.0-6.0) 07/23/25 11:07 Calculated Osmolality 286 mOsm/kg (285-295) 07/24/25 05:11 Lactic Acid 1.0 mmol/L (0.5-2.2) 07/23/25 11:07 Calcium 8.9 mg/dL (8.5-10.5) 07/24/25 05:11 Magnesium 1.8 mg/dL (1.7-2.3) 07/24/25 05:11 Total Bilirubin 0.3 mg/dL (0.15-1.2) 07/24/25 05:11 AST 13 U/L (0-32) 07/24/25 05:11 ALT 16 U/L (0-33) 07/24/25 05:11 Alkaline Phosphatase 160 U/L (35-105) H 07/24/25 05:11 NT-Pro-B Natriuret Pep 881 pg/mL (0-125) H 07/23/25 11:07 Total Protein 5.8 g/dL (6.6-8.7) L 07/24/25 05:11 Albumin 2.7 g/dL (3.5-5.2) L 07/24/25 05:11 Globulin 3.1 g/dL (1.3-4.6) 07/24/25 05:11 Triglycerides 111 mg/dL (0-150) 07/23/25 11:07 Cholesterol 90 mg/dL (0-200) 07/23/25 11:07 LDL Cholesterol, Calc 32 mg/dL (50-129) L 07/23/25 11:07 HDL Cholesterol 36 mg/dL (60-100) L 07/23/25 11:07 LDL/HDL Ratio 0.89 RATIO (0.00-3.22) 07/23/25 11:07 Cholesterol/HDL Ratio 2.50 mg/dL (0.0-4.40) 07/23/25 11:07 Prolactin 15.02 ng/mL (4.8-23.3) 07/23/25 11:07 Urine Color Yellow (Yellow) 07/23/25 10:48 Urine Appearance Cloudy (CLEAR) A 07/23/25 10:48 Urine pH 5.5 (5-7) 07/23/25 10:48 Ur Specific [place] 1.014 (1.005-1.030) 07/23/25 10:48 Urine Protein 2+ (Negative) A 07/23/25 10:48 Urine Glucose (UA) 1+ (Normal) H 07/23/25 10:48 Urine Ketones Negative (Negative) 07/23/25 10:48 Urine Blood 3+ (Negative) A 07/23/25 10:48 Urine Nitrate Negative (Negative) 07/23/25 10:48 Urine Bilirubin Negative (Negative) 07/23/25 10:48 Urine Urobilinogen 0.2 mg/dL (Negative) 07/23/25 10:48 Ur Leukocyte Esterase 2+ (Negative) A 07/23/25 10:48 Urine RBC 21-50 /hpf (0-2) H 07/23/25 10:48 Urine WBC >100 /hpf (0-5) H 07/23/25 10:48 Ur Squamous Epith Cells 6-10 /hpf (0-5) 07/23/25 10:48 Amorphous Sediment Not Reportable 07/23/25 10:48 Urine Bacteria None seen /hpf (NONE) 07/23/25 10:48 Hyaline Casts 3.30 /lpf 07/23/25 10:48 Urine Yeast Trace /hpf 07/23/25 10:48 Urine Opiates Screen Positive ng/mL (Negative) H 07/23/25 10:48 Ur Barbiturates Screen Negative ng/mL (Negative) 07/23/25 10:48 Ur Phencyclidine Scrn Negative ng/mL (Negative) 07/23/25 10:48 Ur Amphetamines Screen Negative ng/mL (Negative) 07/23/25 10:48 U Benzodiazepines Scrn Negative ng/mL (Negative) 07/23/25 10:48 Urine Cocaine Screen Negative ng/mL (Negative) 07/23/25 10:48 U Marijuana (THC) Screen Positive ng/mL (Negative) H 07/23/25 10:48 Vitals Last Vital Signs Temp 97.6 F 07/24/25 08:00 Pulse 94 07/24/25 08:00 Resp 17 07/24/25 08:00 BP 106/77 07/24/25 08:00 Pulse Ox 95 07/24/25 08:00 O2 Del Method Room Air 07/24/25 08:00 Discharge Plan Discharge Patient Disposition: Home Condition: Stable Prescriptions: New amoxicillin-pot clavulanate 875-125 mg Tablet 1 tab PO BID 10 Days Qty: 20 0RF Continued atorvastatin [Lipitor] 80 mg tablet 80 mg PO QPM cyanocobalamin (vitamin B-12) 1,000 mcg capsule 1,000 mcg PO DAILY albuterol sulfate [Ventolin HFA] 90 mcg/actuation HFA aerosol inhaler 2 puff inhalation Q6H PRN (Reason: Shortness Of Breath) acetaminophen 500 mg Tablet 1,000 mg PO QID PRN (Reason: Pain) bupropion HCl 150 mg Tablet Extended Release 24 Hr 150 mg PO QAM sennosides [Senokot] 8.6 mg Tablet 8.6 mg PO DAILY PRN (Reason: Constipation) ondansetron HCl [Zofran] 4 mg Tablet 4 mg PO Q8H PRN (Reason: Nausea) aspirin [Aspir-81] 81 mg Tablet,Delayed Release (Dr/Ec) 81 mg PO DAILY quetiapine [Seroquel] 100 mg Tablet 50 mg PO BEDTIME furosemide [Lasix] 20 mg Tablet 20 mg PO QAM PRN (Reason: fluid retention) polyethylene glycol 3350 [Miralax] 17 gram/dose Powder 17 g PO DAILY PRN (Reason: Constipation) cholecalciferol (vitamin D3) [Vitamin D3] 50 mcg (2,000 unit) Tablet 50 mcg PO DAILY Jardiance 25 mg Tablet 12.5 mg PO DAILY Held spironolactone 25 mg tablet 25 mg PO DAILY Hold Instructions: Resume on 07/28/25. Keep blood pressure log resume if blood pressures normal, reviewed with primary care provider carvedilol 6.25 mg Tablet 3.125 mg PO BID Hold Instructions: Resume on 07/28/25. Hold medication until reviewed with primary care provider, keep blood pressure logs, resume if blood pressure is greater than 110/60 Rx Instructions: must administer with a meal/food ibuprofen 600 mg Tablet 600 mg PO QID PRN (Reason: Pain) Hold Instructions: Resume on 08/05/25. Reviewed with primary care provider before resuming sacubitril-valsartan 24-26 mg tablet 1 tab PO BID Hold Instructions: Resume on 07/28/25. Keep blood pressure log, resume if blood pressures are normal, reviewed with primary care provider Discharge Order = DC NOW: Discharge Order (Routine); Ordered 07/24/25 Ordered By: Janelle Monk Referrals: Eulalio Otero MD [Referring, Urology] - 1-3 days Referral Note: Please call Dr. Tsai Saturday to get a follow up appointment in 1-3 days. Chiqui Tam FNP [Primary Care Provider, [facility]] - 1-3 days Referral Note: You will need to contact your primary care provider Saturday to make a hospital discharge follow up in 1-3 days. Discharge Diet: Cardiac Discharge Activity: Resume usual activity Patient Instructions: Amoxicillin/Clavulanate Potassium (By mouth), Urinary Tract Infection in Women (GEN), Altered Mental Status (ED), Opioid Safety, Patient Portal & Maikel Instructions Discharge Attestations Time Spent in Discharge Care*: greater than 30 min Quality Metrics Clinical Quality Measures [ No reported AMI, CVA or VTE this stay] Coding Level of Care Code 68849 Diagnoses Seizure R56.9 UTI (urinary tract infection) with pyuria N39.0 NIKHIL (acute kidney injury) N17.9 Hypertension I10 Hyperlipemia E78.5 Chronic systolic heart failure I50.22 Depression F32.A DM2 (diabetes mellitus, type 2) E11.9
--- NOTE | 2025-07-24 11:10 | PC.CHAP ---
Pastoral Care Encounter/Spiritual Assessment Type of Contact [] Declined seed buyer visit [] Patient/Family/Request visit [] Outpatient visit [] Follow-up visit [] Physician referral [] Code/Alert [] Routine visit [] Staff referral [] Actively dying [x] Patient sleeping [] Family support [] [] Out of room [] Palliative care [] [] Receiving care in room [] Pre-surgical visit [] Trauma [] Long length of stay [] ICU visit [] Other: Relational/Emotional Strength [] Patient feels connected with others/family/visitors/staff [] Distress [] Loneliness/isolation [] Abandonment Spirituality of Patient [] Person of [place] [] Attends Orthodox of their [place] [] Believes in Prayer [] Reads Bible or Nondenominational materials [] There are Spiritual issues to be addressed Section Housekeeper Interventions [] Prayer [] Active listening [] Non-anxious presence [] Spiritual/emotional support [] Crisis/trauma care [] Spiritual counseling [] Bereavement support [] Provided bereavement packet [] Provided Bible/devotional materials [] Provided toy/stuffed animal, coloring book to patient or family member [] Provided Communion [] Anointing/[place] [] Salvation [] Completed spiritual assessment [] Other: Impact on Illness or Injury [] Angry [] Fearful [] Anxious [] Often cries [] Exhaustion [] Unable to work [] Unable to attend catholic [] Unable to walk/stand [] Unable to read [] Unable to drive [] Unable to eat/drink [] Unable to sleep [] Unable to be with family [] Patient intubated [] Other: Summary Time spent with patient
[2025-07-24 11:38] VITALS: BP 104/67; PULSE 91; RESP 16; TEMP 36.7; O2SAT 95
--- NOTE | 2025-07-24 12:56 | PC.NURSE ---
Patient's daughter is her caregiver.
[2025-07-24 14:25] VITALS: BP 104/67; PULSE 91; RESP 16; TEMP 36.7; O2SAT 95
--- NOTE | 2025-07-25 09:04 | PC.NURSE ---
Patients daughter is her caregiver. Picked patient up yesterday and took her home.
== END 2025-07-24 14:00 | disposition home or self-care (01) ==
LOC: ER 19:30 → MEDSURG 20:20
PROVIDERS: Admitting Provider Internal Medicine; Emergency Provider Physician Assistant; PCP Nurse Practitioner Family; Visit Provider Registered Nurse
DX: N39.0 Urinary tract infection, site not specified (principal); R56.9 Unspecified convulsions; N17.9 Acute kidney failure, unspecified; E78.5 Hyperlipidemia, unspecified; I50.22 Chronic systolic (congestive) heart failure; I11.0 Hypertensive heart disease with heart failure; F32.A Depression, unspecified; E11.9 Type 2 diabetes mellitus without complications; Z79.82 Long term (current) use of aspirin; Z87.891 Personal history of nicotine dependence; Z86.73 Personal history of transient ischemic attack (TIA), and cerebral infarction without residual deficits; R47.01 Aphasia; J44.9 Chronic obstructive pulmonary disease, unspecified
CPT/HCPCS: 36415; 36416; 70450; 71045; 74176; 80053; 80061; 80306; 81001; 82962; 83036; 83605; 83735; 83880; 84146; 85025; 87040; 87086; 96361; 96365; 96372; 96375; 99285; G0378; J1644; J2270; J2543; J7030; J7040; J9999